=== PATIENT | male | born 1965 | race Two or more races ===

== ENCOUNTER 2024-07-28 07:34 | Outpatient (CLI) | payer OTHER | END 2024-07-28 07:37 | disposition home or self-care (01) | LOC: SONOGRAMA 07:34 | DX: K81.0 Acute cholecystitis (principal) ==

== ENCOUNTER 2024-12-17 08:40 | Day surgery (SDC) | payer OTHER ==
[2024-12-15 10:29] VITALS: BP 126/88
[2024-12-15 10:38] LABS: BASO % 1.1 % (0.1-1.2); EOS # 0.12 (0.04-0.54); EOS % 2.1 % (0.7-7.0); LYMPH # 1.25 (1.18-3.74); LYMPH % 22.0 % (19.3-53.1); MEAN PLATELET VOLUME 9.70 fl (9.4-12.4); MONO # 0.55 (0.24-0.82); MONO % 9.7 % (4.7-12.5); NEUT # 3.66 (1.56-6.13); NEUT % 64.6 % (34.0-71.1); RED CELL DISTRIBUTION WIDTH 12.1 % (11.6-14.4); URINE APPEARANCE Clear; URINE BILIRRUBIN Negative (NEGATIVE); URINE BLOOD Negative; URINE COLOR Yellow; URINE GLUCOSE Negative (NEGATIVE); URINE KETONE Trace (NEGATIVE); URINE LEUKOCYTE Negative; URINE NITRATE Negative; URINE PROTEIN Trace (NEGATIVE); URINE UROBILINOGEN 0.2 E.U./dl
[2024-12-15 10:43] LABS: URINE EPITHELIAL CELLS 2.7 uL (0.0-38.8); URINE RBC 4.8 uL (0.0-20.8); URINE WBC 2.1 uL (0.0-23.2)
[2024-12-15 10:59] LABS: INR 1.0
[2024-12-15 11:03] LABS: ALT/SGPT 32.0 U/L (12-78); AST/SGOT 17.0 U/L (15-37); BILIRUBIN TOTAL 0.79 mg/dL (0.3-1.2); BUN CREA RATIO 14.0 (7.0-25.0); CREATININE SERUM 1.14 mg/dL (0.70-1.30); GFR 65.52; GLOBULINA 3.4 G/DL (2.4-3.5); GLUCOSE FASTING 98.0 mg/dL (65-100); OSMOLALITY SERUM 286.0 MOSM/KG (275-295)
[2024-12-15 11:06] LABS: URINE BACTERIA 2.3 uL (0.0-1933); URINE CAST 0.14 uL (0.0-1.40)
[~2024-12-17] VITALS: Ht 180.3 cm; Wt 83.9 kg
[2024-12-17] MEDS ORDERED: CEFAZOLIN SODIUM 1,000 MG VIAL ONE (10:26)
== END 2024-12-17 19:00 | disposition home or self-care (01) ==
LOC: CIR.AMB 08:40
PROVIDERS: ATTEND Surgery
DX: K81.1 Chronic cholecystitis (principal)